=== PATIENT | female | born 1945 | race Caucasian/White ===

== ENCOUNTER 2018-02-04 09:58 | Outpatient (CLI) | payer MEDICARE ==
[2018-02-04 10:52] LABS: INR 1.5 INR; PROTHROMBIN TIME 15.8 SECONDS (9.0-12.0)
== END 2018-02-04 23:59 | disposition home or self-care (01) ==
LOC: LAB 09:58
PROVIDERS: ATTEND General Practice
DX: R79.1 Abnormal coagulation profile (principal); Z79.01 Long term (current) use of anticoagulants; Z87.891 Personal history of nicotine dependence
CPT/HCPCS: 36415; 85610

== ENCOUNTER 2018-03-09 08:48 | Outpatient (CLI) | payer MEDICARE ==
[2018-03-09 09:40] LABS: INR 2.1 INR
== END 2018-03-09 23:59 | disposition home or self-care (01) ==
LOC: LAB 08:48
PROVIDERS: ATTEND General Practice
DX: R79.1 Abnormal coagulation profile (principal); Z87.891 Personal history of nicotine dependence; Z79.01 Long term (current) use of anticoagulants
CPT/HCPCS: 36415; 85610

== ENCOUNTER 2018-04-07 08:13 | Outpatient (CLI) | payer MEDICARE ==
[2018-04-07 10:00] LABS: INR 2.1 INR; PROTHROMBIN TIME 20.5 SECONDS (9.0-12.0)
[2018-04-07 11:00] LABS: ALANINE AMINOTRANSFERASE 33 U/L (12-78); ALBUMIN 3.9 G/DL (3.4-5.0); ALBUMIN/GLOBULIN RATIO 1.1 (1.1-1.5); ALKALINE PHOSPHATASE 117 IU/L (46-116); ANION GAP 18 (8-16); ASPARTATE AMINO TRANSFERASE 26 U/L (10-37); BILIRUBIN,TOTAL 0.4 MG/DL (0.1-1.0); BLOOD UREA NITROGEN 16 MG/DL (7-18); BUN/CREATININE RATIO 18.4 (6.6-38.0); CALCIUM 9.1 MG/DL (8.5-10.1); CHLORIDE 103 MMOL/L (99-107); CHOL/HDL RATIO 2.4 (0.00-4.99); CHOLESTEROL 168 MG/DL (0-200); CREATININE 0.87 MG/DL (0.40-0.90); GLUCOSE 95 MG/DL (70-104); HDL CHOLESTEROL 70 MG/DL (35-60); LDL CHOLESTEROL 90 MG/DL (50-100); POTASSIUM 3.5 MMOL/L (3.5-5.1); SODIUM 142 MMOL/L (135-145); TOTAL CARBON DIOXIDE 21.5 MMOL/L (24-32); TOTAL PROTEIN 7.5 G/DL (6.4-8.2); TRIGLYCERIDES 104 MG/DL (20-135); eGFR 64 ML/MIN
== END 2018-04-07 23:59 | disposition home or self-care (01) ==
LOC: LAB 08:13
PROVIDERS: ATTEND General Practice
DX: E78.2 Mixed hyperlipidemia (principal); R79.1 Abnormal coagulation profile; Z87.891 Personal history of nicotine dependence
CPT/HCPCS: 36415; 80053; 80061; 85610; 86140

== ENCOUNTER 2018-05-22 12:03 | Outpatient (CLI) | payer MEDICARE ==
[2018-05-22 12:48] LABS: INR 1.8 INR; PROTHROMBIN TIME 18.1 SECONDS (9.0-12.0)
== END 2018-05-22 23:59 | disposition home or self-care (01) ==
LOC: LAB 12:03
PROVIDERS: ATTEND General Practice
DX: R79.1 Abnormal coagulation profile (principal); Z79.01 Long term (current) use of anticoagulants; Z87.891 Personal history of nicotine dependence
CPT/HCPCS: 36415; 85610

== ENCOUNTER 2018-06-11 11:07 | Outpatient (CLI) | payer MEDICARE ==
[2018-06-11 12:28] LABS: PROTHROMBIN TIME 20.5 SECONDS (9.0-12.0)
[2018-06-11 12:29] LABS: INR 2.1 INR
== END 2018-06-11 23:59 | disposition home or self-care (01) ==
LOC: LAB 11:07
PROVIDERS: ATTEND General Practice
DX: R79.1 Abnormal coagulation profile (principal); Z79.01 Long term (current) use of anticoagulants; Z87.891 Personal history of nicotine dependence
CPT/HCPCS: 36415; 85610

== ENCOUNTER 2018-07-10 10:06 | Outpatient (CLI) | payer MEDICARE ==
[2018-07-10 11:35] LABS: INR 1.8 INR
== END 2018-07-10 23:59 | disposition home or self-care (01) ==
LOC: LAB 10:06
PROVIDERS: ATTEND General Practice
DX: R79.1 Abnormal coagulation profile (principal); Z79.01 Long term (current) use of anticoagulants; Z88.5 Allergy status to narcotic agent
CPT/HCPCS: 36415; 85610

== ENCOUNTER 2018-07-12 17:56 | Emergency (ER) | payer MEDICARE ==
[~2018-07-12] VITALS: Ht 160 cm; Wt 51.8 kg
[2018-07-12 18:17] VITALS: BP 155/70
== END 2018-07-12 20:55 | disposition home or self-care (01) ==
LOC: ER 17:57
DX: S93.602A Unspecified sprain of left foot, initial encounter (principal); Z88.5 Allergy status to narcotic agent; W19.XXXA Unspecified fall, initial encounter; Y93.89 Activity, other specified; Y92.89 Other specified places as the place of occurrence of the external cause; Y99.8 Other external cause status
CPT/HCPCS: 73610; 99284

== ENCOUNTER 2018-08-11 09:10 | Outpatient (CLI) | payer MEDICARE ==
[2018-08-11 10:45] LABS: INR 1.6 INR; PROTHROMBIN TIME 16.1 SECONDS (9.0-12.0)
== END 2018-08-11 23:59 | disposition home or self-care (01) ==
LOC: LAB 09:10
PROVIDERS: ATTEND General Practice
DX: R79.1 Abnormal coagulation profile (principal); Z79.01 Long term (current) use of anticoagulants; Z88.5 Allergy status to narcotic agent
CPT/HCPCS: 36415; 85610

== ENCOUNTER 2018-09-09 15:36 | Outpatient (CLI) | payer MEDICARE ==
[2018-09-09 17:04] LABS: INR 1.6 INR; PROTHROMBIN TIME 16.2 SECONDS (9.0-12.0)
== END 2018-09-09 23:59 | disposition home or self-care (01) ==
LOC: LAB 15:36
PROVIDERS: ATTEND General Practice
DX: R79.1 Abnormal coagulation profile (principal); Z79.01 Long term (current) use of anticoagulants; Z88.5 Allergy status to narcotic agent; Z87.891 Personal history of nicotine dependence
CPT/HCPCS: 36415; 85610

== ENCOUNTER 2018-09-16 13:20 | Outpatient (CLI) | payer MEDICARE ==
[2018-09-16 13:56] LABS: INR 1.9 INR
== END 2018-09-16 23:59 | disposition home or self-care (01) ==
LOC: LAB 13:20
PROVIDERS: ATTEND General Practice
DX: I82.502 Chronic embolism and thrombosis of unspecified deep veins of left lower extremity (principal); Z88.5 Allergy status to narcotic agent
CPT/HCPCS: 36415; 85610

== ENCOUNTER 2018-10-08 10:09 | Outpatient (CLI) | payer MEDICARE ==
[2018-10-08 11:30] LABS: INR 2.1 INR
== END 2018-10-08 23:59 | disposition home or self-care (01) ==
LOC: LAB 10:09
PROVIDERS: ATTEND General Practice
DX: R79.1 Abnormal coagulation profile (principal); Z79.01 Long term (current) use of anticoagulants
CPT/HCPCS: 36415; 85610